=== PATIENT | male | born 1980 | race Two or more races ===

== ENCOUNTER → 2024-07-30 | Emergency (ER) | payer OTHER ==
[~2024-07-30] VITALS: Ht 180.3 cm; Wt 90.7 kg
[~2024-07-30] MED LIST: IBUprofen 100 MG/5 ML-120ML ML PO STA; IBUprofen 20 MG/ML BLIST.PACK (5ML) PO ONE
== END | disposition home or self-care (01) ==
LOC: ER 14:41
DX: S29.8XXA Other specified injuries of thorax, initial encounter (principal); S21.90XA Unspecified open wound of unspecified part of thorax, initial encounter; W19.XXXA Unspecified fall, initial encounter; Y93.89 Activity, other specified; Y92.89 Other specified places as the place of occurrence of the external cause; Y99.8 Other external cause status; M25.511 Pain in right shoulder; R07.81 Pleurodynia